=== PATIENT | female | born 1995 | race Two or more races ===

== ENCOUNTER 2017-01-05 02:28 | Emergency (ER) | payer OTHER ==
[~2017-01-05] VITALS: Ht 157.5 cm; Wt 52.2 kg
[2017-01-05] MEDS ORDERED: OXYC-323 PO (06:10)
[2017-01-05] MEDS ORDERED: NAPR250T2 PO (06:10)
[2017-01-05 06:14] VITALS: BP 117/81
[2017-01-05] MEDS ORDERED: oxyCODONE/APAP 5/325 1 TAB TABLET PO ONE (06:15)
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
== END 2017-01-05 06:20 | disposition home or self-care (01) ==
LOC: ER 02:28
DX: H72.91 Unspecified perforation of tympanic membrane, right ear (principal)
CPT/HCPCS: 99283

== ENCOUNTER 2017-08-03 20:59 | Emergency (ER) | payer SELFPAY, OTHER ==
[2017-08-03] MEDS: ACETAMINOPHEN 500 MG TABLET PO ×2 (22:33)
[2017-08-03] MEDS: IBUPROFEN 800 MG TABLET. PO ×2 (22:33)
[2017-08-03 22:52] LABS: INFLUENZA A PATIENT NEGATIVE (NEGATIVE); INFLUENZA B PATIENT POSITIVE (NEGATIVE); OBC FLU VALID
== END 2017-08-03 23:08 | disposition home or self-care (01) ==
LOC: ER 20:59
DX: J10.1 Influenza due to other identified influenza virus with other respiratory manifestations (principal)
CPT/HCPCS: 87804; 87804-59; 99284